=== PATIENT | male | born 1995 ===

== ENCOUNTER 2021-04-25 21:50 | Emergency (ER) | payer SELFPAY ==
--- NOTE | 2021-04-25 22:49 | Emergency Department Report ---
HPI - General Chief Complaint: Psych Time Seen by Provider: 04/25/21 22:25 - HPI HPI: Room 16 Patient 25-year-old male present with chief complaint of suicidal ideation. Patient states the past 1 to 2 weeks he is felt suicidal. Patient states his only attempt to harm himself was burning his left hand with a cigarette days ago. Patient states his plan was to hang himself or shoot himself. ED Past Medical Hx - Past Medical History Previous Medical History?: Yes Hx Hypertension: Yes Hx Psychiatric Treatment: Yes (PTSD) - Surgical History Past Surgical History?: No Additional Surgical History: Right wrist fracture repair - Family History Family history: no significant - Social History Smoking Status: Current Every Day Smoker (1/3 pack/day) Substance Use Type: Cocaine, Marijuana - Medications Home Medications: Home Medications Medication Instructions Recorded Confirmed Last Taken Type ARIPiprazole [Abilify] 20 mg PO HS 04/26/21 04/26/21 Unknown History Aripiprazole Lauroxil [Aristada] 662 mg IM QMONTH 04/26/21 04/26/21 Unknown History Citalopram [celeXA] 20 mg PO QHS 04/26/21 04/26/21 Unknown History Divalproex ER [DepaKOTE ER] 500 mg PO BID 04/26/21 04/26/21 Unknown History risperiDONE [RisperDAL] 3 mg PO QHS 04/26/21 04/26/21 Unknown History traZODone [Desyrel] 100 mg PO QHS 04/26/21 04/26/21 Unknown History ED Review of Systems ROS: Stated complaint: SI Other details as noted in HPI Constitutional: no symptoms reported Eyes: denies: eye pain ENT: denies: throat pain Respiratory: no symptoms reported Cardiovascular: denies: chest pain Endocrine: no symptoms reported Gastrointestinal: denies: abdominal pain Genitourinary: denies: dysuria Musculoskeletal: denies: back pain Neurological: denies: headache Psychiatric: suicidal thoughts Physical Exam - Physical Exam Vital Signs: Vital Signs 04/25/21 21:54 Temperature 98.8 F Pulse Rate 106 H Respiratory 18 Rate Blood Pressure 138/96 [Left] O2 Sat by Pulse 98 Oximetry Physical Exam: GENERAL: The patient is well-developed well-nourished male standing in hallway not appearing to be in acute distress. [] HEENT: Normocephalic. Atraumatic. Extraocular motions are intact. Patient has moist mucous membranes. NECK: Supple. Trachea midline CHEST/LUNGS: Clear to auscultation. There is no respiratory distress noted. HEART/CARDIOVASCULAR: Regular. There is no tachycardia. There is no gallop rub or murmur. ABDOMEN: Abdomen is soft, nontender. Patient has normal bowel sounds. There is no abdominal distention. SKIN: There is no rash. There is no edema. There is no diaphoresis. NEURO: The patient is awake, alert, and oriented. The patient is cooperative. The patient has no focal neurologic deficits. The patient has normal speech and gait. GCS 15 MUSCULOSKELETAL: There is no evidence of acute injury. ED Course Vital Signs 04/25/21 21:54 Temperature 98.8 F Pulse Rate 106 H Respiratory 18 Rate Blood Pressure 138/96 [Left] O2 Sat by Pulse 98 Oximetry ED Medical Decision Making - Lab Data Result diagrams: 04/26/21 06:42 04/26/21 06:42 - Differential Diagnosis Suicidal ideation, PTSD Critical care attestation.: If time is entered above; I have spent that time in minutes in the direct care of this critically ill patient, excluding procedure time. ED Disposition Clinical Impression: Suicidal ideation Disposition: [address] [place] [address] Is pt being admited?: No Does the pt Need Aspirin: No Condition: Stable
[2021-04-25] MEDS: LORazepam 2 MG/ML VIAL IM PRN ×2 (23:24→23:29)
[2021-04-25] MEDS: diphenhydrAMINE 50 MG/ML VIAL IM PRN ×2 (23:24→23:29)
[2021-04-25] MEDS: HALOPERIDOL LACTATE 5 MG/1 ML INJ IM PRN ×2 (23:24→23:30)
[2021-04-26 07:22] LABS: Basophils # (Auto) 0.1 K/mm3 (0.0-0.1); Basophils % (Auto) 0.6 % (0.0-1.8); Eosinophils # (Auto) 0.1 K/mm3 (0.0-0.4); Eosinophils % (Auto) 1.1 % (0.0-4.3); Hematocrit 46.3 % (35.5-45.6); Hemoglobin 16.1 gm/dl (11.8-15.2); Lymphocytes # (Auto) 3.8 K/mm3 (1.2-5.4); Lymphocytes % (Auto) 36.4 % (13.4-35.0); Mean Corpuscular HGB Conc 35 % (32-34); Mean Corpuscular Volume 88 fl (84-94); Monocytes # (Auto) 0.7 K/mm3 (0.0-0.8); Monocytes % (Auto) 6.3 % (0.0-7.3); Platelet Count 203 K/mm3 (140-440); Red Blood Count 5.25 M/mm3 (3.65-5.03); Red Cell Distribution Width 13.5 % (13.2-15.2)
[2021-04-26 07:49] LABS: Alanine Aminotransferase 19 units/L (7-56); Albumin 4.7 g/dL (3.9-5); BUN/Creatinine Ratio 15; Blood Urea Nitrogen 15 mg/dL (9-20); Calcium 9.7 mg/dL (8.4-10.2); Hemolysis Index 16
--- NOTE | 2021-04-26 08:37 | Emergency Department Report ---
Blank Doc - Documentation Documentation: Patient is currently resting. We have the labs that have been sent. Urine is still pending. Patient is still in seclusion and we are awaiting psychiatric evaluation. Laboratory studies have been reviewed other than urine and the patient is medically cleared at this time.
--- NOTE | 2021-04-26 09:59 | Consultation ---
History of Present Illness - Reason for Consult Consult date: 04/26/21 Reason for consult: SI - History of Present Psychiatric Illness HPI: Patient 25-year-old male present with chief complaint of suicidal ideation. Patient states the past 1 to 2 weeks he is felt suicidal. Patient states his only attempt to harm himself was burning his left hand with a cigarette days ago. Patient states his plan was to hang himself or shoot himself. The patient was seen today. He is in the observation room. He is asleep, but arouses after calling his name several times. The patient says he came to the hospital because he wanted to kill himself. He still endorses suicidal thoughts, but denies a plan. He says he's hearing voices. I ask the patient were the voices telling him to hurt himself, he replies "I don't know." He says he has a history of PTSD. He denies any other diagnoses. He could not tell me what meds he takes. He says he has not been taking them. He says "I don't know when asked." He denies any illicit drug use, alcohol or nicotine. The nurse caring for the patient states that he had been medicated for pacing and agitation last night. PAST PSYCHIATRIC HISTORY Diagnoses: PTSD Suicide attempts or Self-harm behavior: Denies Prior psychiatric hospitalizations: yes Substance Abuse history: Denies Previous psychiatric medications tried: could not recall Outpatient treatment: not taking PAST MEDICAL HISTORY: None reported Family Psychiatric History: Not available SOCIAL HISTORY Marital Status: Single Living Arrangements: with family Employment Status: Unemployed Access to guns/weapons: None reported Education: History of Abuse: None reported Legal History: None reported REVIEW OF SYSTEMS Constitutional: Negative for weight loss ENT: Negative for stridor Respiratory: Negative for cough or hemoptysis All other systems reviewed and are negative MENTAL STATUS EXAMINATION General Appearance and Behavior: Age appropriate, good hygiene, wearing appropriate clothes, poor eye contact, cooperative polite with questioning. Cooperation: Participating Psychomotor Behavior: normal Mood: depressed Affect and affective range: congruent with mood Thought Process: goal directed Thought Content: hallucinations, depression Speech: Normal volume, Regular rate and rhythm Suicidal Ideation: Yes Homicidal Ideation: Denies Hallucinations: Auditory Impulse Control: Limited Insight and Judgment: poor insight and limited judgment Memory: Limited Attention: Distractible Orientation: Alert, oriented x 3 Assessment and Plan (1) Mood Disorder, Unspecified RECOMMENDATIONS 1013 Risperidone 1mg po BID Start Depakote DR 125mg po BID Doxepin 10mg po qhs Risks, benefits and alternatives of medications discussed with the patient, questions answered and consent obtained from patient. PSYCHOTHERAPY: Supportive psychotherapy provided MEDICAL: Per primary team DELIRIUM PRECAUTIONS: Please re-orient patient frequently, keep lights on during the day, and minimize benzodiazepines and opiates as these medications could worsen patient's confusion. 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 FOLLOW-UP: Will follow Thank you for the consult. Please contact Medications and Allergies Allergies Allergy/AdvReac Type Severity Reaction Status Date / Time morphine Allergy Unknown Verified 04/25/21 21:56 Home Medications Medication Instructions Recorded Confirmed Last Taken Type ARIPiprazole [Abilify] 20 mg PO HS 04/26/21 04/26/21 Unknown History Aripiprazole Lauroxil [Aristada] 662 mg IM QMONTH 04/26/21 04/26/21 Unknown History Citalopram [celeXA] 20 mg PO QHS 04/26/21 04/26/21 Unknown History Divalproex ER [DepaKOTE ER] 500 mg PO BID 04/26/21 04/26/21 Unknown History risperiDONE [RisperDAL] 3 mg PO QHS 04/26/21 04/26/21 Unknown History traZODone [Desyrel] 100 mg PO QHS 04/26/21 04/26/21 Unknown History Active Meds: Active Medications Diphenhydramine HCl (Diphenhydramine 50 Mg/Ml Vial) 50 mg IM Q6H PRN PRN Reason: Agitation Last Admin: 04/25/21 23:29 Dose: 50 mg Haloperidol Lactate (Haloperidol Lactate 5 Mg/1 Ml Inj) 10 mg IM Q8H PRN PRN Reason: Agitation Last Admin: 04/25/21 23:30 Dose: 10 mg Lorazepam (Lorazepam 2 Mg/Ml Vial) 2 mg IM Q8H PRN PRN Reason: Agitation Last Admin: 04/25/21 23:29 Dose: 2 mg Mental Status Exam - Vital signs Last Vital Signs Temp 98.8 F 04/25/21 21:54 Pulse 106 H 04/25/21 21:54 Resp 18 04/25/21 23:35 BP 138/96 04/25/21 21:54 Pulse Ox 98 04/25/21 23:35 Results Result Diagrams: 04/26/21 06:42 04/26/21 06:42 Abnormal lab results 04/26/21 04/26/21 04/26/21 Range/Units 06:42 06:42 06:42 RBC 5.25 H (3.65-5.03) M/mm3 Hgb 16.1 H (11.8-15.2) gm/dl Hct 46.3 H (35.5-45.6) % MCHC 35 H (32-34) % Lymph % (Auto) 36.4 H (13.4-35.0) % Total Bilirubin 1.30 H (0.1-1.2) mg/dL Salicylates < 0.3 L (2.8-20.0) mg/dL Acetaminophen (10.0-30.0) ug/mL Valproic Acid < 2.8 L (50-100) ug/mL 04/26/21 Range/Units 06:42 RBC (3.65-5.03) M/mm3 Hgb (11.8-15.2) gm/dl Hct (35.5-45.6) % MCHC (32-34) % Lymph % (Auto) (13.4-35.0) % Total Bilirubin (0.1-1.2) mg/dL Salicylates (2.8-20.0) mg/dL Acetaminophen 5.0 L (10.0-30.0) ug/mL Valproic Acid (50-100) ug/mL All other labs normal.
[2021-04-26 10:21] LABS: Bilirubin,Urine NEG (Negative); Blood,Urine NEG (Negative); Color,Urine Yellow (Yellow); Mucus,Urine 2+ /HPF
[2021-04-26 10:29] LABS: Amphetamine Screen,Urine Negative; Benzodiazepines Screen,Urine Negative; Cocaine Screen,Urine Negative; Methadone Screen,Urine Negative; Opiate Screen,Urine Negative
[2021-04-26 10:44] LABS: Cannabinoid Screen,Urine Positive
[2021-04-26] MEDS: risperiDONE 1 MG TAB PO SCH ×2 (10:53→21:35)
[2021-04-26] MEDS: DIVALPROEX DR 125 MG TAB PO SCH ×2 (10:53→21:34)
[2021-04-26] MEDS ORDERED: DOXEPIN 10 MG CAP PO SCH (22:00)
[2021-04-27] MEDS: DIVALPROEX DR 125 MG TAB PO SCH (09:40)
[2021-04-27] MEDS: risperiDONE 1 MG TAB PO SCH (09:40)
--- NOTE | 2021-04-27 09:56 | Progress Note ---
Subjective - Reason for Consult Consult date: 04/27/21 Reason for consult: SI - Chief Complaint Chief complaint: The patient was seen this morning. he reports doing well. The patient states sleep and appetite as good. He denies any current suicidal/homicidal ideation and denies hallucinations. REVIEW OF SYSTEMS Constitutional: Negative for weight loss ENT: Negative for stridor Respiratory: Negative for cough or hemoptysis All other systems reviewed and are negative MENTAL STATUS EXAMINATION General Appearance and Behavior: Age appropriate, good hygiene, wearing appropriate clothes, poor eye contact, cooperative polite with questioning. Cooperation: Participating Psychomotor Behavior: normal Mood: Calm Affect and affective range: congruent with mood Thought Process: Goal directed Thought Content: Reality oriented Speech: Normal volume, Regular rate and rhythm Suicidal Ideation:Denies Homicidal Ideation: Denies Hallucinations: Denies Impulse Control: Limited Insight and Judgment: Limitedinsight and limited judgment Memory: Limited Attention: Distractible Orientation: Alert, oriented x 3 Assessment and Plan (1) Mood Disorder, Unspecified RECOMMENDATIONS DC- 1013 Continue Risperidone 1mg po BID Continue Depakote DR 250mg po BID Risks, benefits and alternatives of medications discussed with the patient, questions answered and consent obtained from patient. PSYCHOTHERAPY: Supportive psychotherapy provided MEDICAL: Per primary team DELIRIUM PRECAUTIONS: Please re-orient patient frequently, keep lights on during the day, and minimize benzodiazepines and opiates as these medications could worsen patient's confusion. 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 Hiv/Aids Care Nurse will provide patient with psychiatric out patient resources and safety plan. FOLLOW-UP: Will sign off. Thank you for the consult. Please contact Medications and Allergies Mental Status Exam - Vital signs Last Vital Signs Temp 98.5 F 04/26/21 20:36 Pulse 92 H 04/26/21 20:36 Resp 18 04/26/21 20:36 BP 107/65 04/26/21 20:36 Pulse Ox 100 04/26/21 20:36
[2021-04-27 10:22] VITALS: BP 111/61
--- NOTE | 2021-04-27 11:31 | Emergency Department Report ---
Blank Doc - Documentation Documentation: Patient has been medically cleared for psychiatric evaluation. Psychiatric se rvices has cleared the patient for discharge. He is not actively suicidal, homicidal, or delusional.
== END 2021-04-27 12:34 | disposition home or self-care (01) ==
LOC: EDBD → ED 21:50
DX: R45.851 Suicidal ideations (principal); I10 Essential (primary) hypertension; F17.200 Nicotine dependence, unspecified, uncomplicated; Z20.822 Contact with and (suspected) exposure to COVID-19; F12.90 Cannabis use, unspecified, uncomplicated; F14.90 Cocaine use, unspecified, uncomplicated; Z72.89 Other problems related to lifestyle; Z79.899 Other long term (current) drug therapy; Z88.5 Allergy status to narcotic agent
CPT/HCPCS: 36415; 80053; 80164; 80307; 81001; 85025; 96372; 99284; J1200; J1630; J2060; U0003; 80320; G0480